=== PATIENT | male | born 1955 | race Caucasian/White ===

== ENCOUNTER 2018-01-19 22:29 | Emergency (ER) | payer OTHER | END 2018-01-20 02:26 | disposition home or self-care (01) | LOC: FTE 22:29 | DX: J02.9 Acute pharyngitis, unspecified (principal) | CPT/HCPCS: 99283; Z7502 ==

== ENCOUNTER 2018-01-26 08:37 | Emergency (ER) | payer OTHER | END 2018-01-26 09:32 | disposition home or self-care (01) | LOC: FTE 08:37 | DX: J02.9 Acute pharyngitis, unspecified (principal) | CPT/HCPCS: 99282; Z7502 ==